=== PATIENT | female | born 1990 | race Asian ===

== ENCOUNTER 2018-07-14 00:20 | Inpatient (IN) | payer SELFPAY ==
[~2018-07-14] VITALS: Ht 160 cm; Wt 75.3 kg
[2018-07-14] MEDS ORDERED: LR 1,000 ML IV ONE (01:18)
[2018-07-14] MEDS ORDERED: LR 1,000 ML IV SCH (01:18)
[2018-07-14] MEDS ORDERED: OXYTOCIN/0.9 % SODIUM CHLORIDE 1,000 ML IV SCH (01:18)
[2018-07-14] MEDS ORDERED: NALBUPHINE HCL 10 MG/ML AMP IVP PRN (01:30)
[2018-07-14 01:33] VITALS: BP_SYST 126
[2018-07-14 02:01] LABS: BASOPHILS # (AUTO) 0.1 K/uL (0.0-0.2); BASOPHILS % (AUTO) 0.9 % (0.0-2.0); EOSINOPHILS % (AUTO) 0.5 % (0.0-4.0); HEMOGLOBIN 12.1 g/dL (12.0-16.0); LYMPHOCYTES # (AUTO) 2.4 K/uL (1.0-5.5); LYMPHOCYTES % (AUTO) 30.6 % (20.5-51.5); MEAN CORPUSCULAR HEMOGLOBIN 31 pg (27-31); MEAN CORPUSCULAR HGB CONC 34 % (32-36); MEAN CORPUSCULAR VOLUME 93 fL (79.0-98.0); MONOCYTES # (AUTO) 0.5 K/uL (0.0-1.0); NEUTROPHILS # (AUTO) 4.7 K/uL (1.8-7.7); PLATELET COUNT (AUTO) 194 K/uL (130-430); RED BLOOD CELL COUNT(AUTO) 3.87 MIL/uL (4.2-6.2); RED CELL DISTRIBUTION WIDTH 12.2 % (9.0-15.0); WHITE BLOOD COUNT (AUTO) 7.7 K/uL (4.8-10.8)
[2018-07-14] MEDS ORDERED: ROPIVACAINE 0.2% 100 ML ONE (07:22)
[2018-07-14] MEDS ORDERED: fentaNYL CITRATE/PF 100 MCG/2 ML AMP ONE (07:22)
[2018-07-14] MEDS ORDERED: LR 500 ML IV ONE (07:38)
[2018-07-14] MEDS ORDERED: FENT2mCg/mL-ROPIVA0.2%/NS EPID 150 ML EP SCH (07:45)
[2018-07-14] MEDS ORDERED: WITCH HAZEL LEAF 1 MED.PAD MED.PAD TP PRN (11:45)
[2018-07-14] MEDS ORDERED: DIPH-TET-PERTUS Vaccine 0.5 ML VIAL (ADACEL) I.M. PRN (11:45)
[2018-07-14] MEDS ORDERED: ANUSOL 1 EA SUPP.RECT (PREPARATION H) RC PRN (11:45)
[2018-07-14] MEDS ORDERED: SENNOSIDES/DOCUSATE SODIUM 1 TAB TABLET(SENOKOT-S) PO PRN (11:45)
[2018-07-14] MEDS ORDERED: OXYTOCIN/0.9 % SODIUM CHLORIDE 1,000 ML IV ONE (11:45)
[2018-07-14] MEDS ORDERED: DERMOPLAST SPRAY TP PRN (11:45)
[2018-07-14] MEDS ORDERED: ACETAMINOPHEN 325 MG TABLET PO PRN (11:45)
[2018-07-14] MEDS ORDERED: LANOLIN 7 GM OINT. TP PRN (11:45)
[2018-07-14] MEDS ORDERED: HYDROCORTISONE 0.5%, 28.35 GM TOPICAL CREAM TP PRN (11:45)
[2018-07-14] MEDS ORDERED: OXYCODONE/ACETAMINOPHEN 5-325 TABLET PO PRN (11:45)
[2018-07-14] MEDS ORDERED: MINERAL OIL 30 ML UDC PO ONE (15:14)
[2018-07-14] MEDS: OXYCODONE/ACETAMINOPHEN 5-325 TABLET PO PRN ×2 (15:16→21:36)
[2018-07-14] MEDS: IBUPROFEN 600 MG TABLET PO SCH (18:05)
[2018-07-14] MEDS: DOCUSATE SODIUM 100 MG CAPSULE PO PRN (20:03)
[2018-07-15] MEDS: IBUPROFEN 600 MG TABLET PO SCH ×3 (06:28→16:08)
[2018-07-15 07:25] LABS: BASOPHILS % (AUTO) 0.2 % (0.0-2.0); EOSINOPHILS # (AUTO) 0.1 K/uL (0.0-0.4); EOSINOPHILS % (AUTO) 1.1 % (0.0-4.0); HEMATOCRIT 34.1 % (36-48); HEMOGLOBIN 11.2 g/dL (12.0-16.0); LYMPHOCYTES # (AUTO) 2.4 K/uL (1.0-5.5); LYMPHOCYTES % (AUTO) 25.3 % (20.5-51.5); MEAN CORPUSCULAR HEMOGLOBIN 31 pg (27-31); MEAN CORPUSCULAR HGB CONC 33 % (32-36); MEAN CORPUSCULAR VOLUME 94 fL (79.0-98.0); MONOCYTES # (AUTO) 0.5 K/uL (0.0-1.0); NEUTROPHILS # (AUTO) 6.4 K/uL (1.8-7.7); NEUTROPHILS % (AUTO) 68.4 % (40.0-70.0); PLATELET COUNT (AUTO) 177 K/uL (130-430); RED BLOOD CELL COUNT(AUTO) 3.64 MIL/uL (4.2-6.2); RED CELL DISTRIBUTION WIDTH 12.8 % (9.0-15.0); WHITE BLOOD COUNT (AUTO) 9.4 K/uL (4.8-10.8)
[2018-07-15] MEDS: DOCUSATE SODIUM 100 MG CAPSULE PO PRN (13:33)
[2018-07-16] MEDS: DOCUSATE SODIUM 100 MG CAPSULE PO PRN
[2018-07-16] MEDS: IBUPROFEN 600 MG TABLET PO SCH
== END 2018-07-16 10:20 | disposition home or self-care (01) | DRG 807 ==
LOC: SPU 00:20 → OBSVTOIN 01:15
PROVIDERS: ADMIT Obstetrics & Gynecology; ATTEND Obstetrics & Gynecology
PROC: 10E0XZZ Delivery of Products of Conception, External Approach (ICD-10-PCS; principal; 2018-07-14)
DX: O70.9 Perineal laceration during delivery, unspecified (principal); Z37.0 Single live birth; Z3A.39 39 weeks gestation of pregnancy
CPT/HCPCS: 36415; 85025; 86870; 86886; 86900; 86901; 90656; 90715; G0378; J2300; J2590; J2795; J3010